=== PATIENT | male | born 1950 | race Caucasian/White ===

== ENCOUNTER → 2016-08-25 | Outpatient (CLI) | payer MEDICARE, OTHER ==
[~2016-08-25] MED LIST: ASPI-558 PO; ATOR20TA18 PO; CALMOSEPTINE OINTMENT 3.5 G PACKET TOP ONE; CARV6.252 PO; CHOL200026 PO; HYDR-4246 PO; LOSA50TA52 PO; METF500T4 PO; TAMS0.4C47 PO; TRIA1CAP6 PO
== END ==
LOC: NWCC 13:29
PROVIDERS: ATTEND Internal Medicine
DX: S97.81XS Crushing injury of right foot, sequela (principal); L97.412 Non-pressure chronic ulcer of right heel and midfoot with fat layer exposed; W23.0XXS Caught, crushed, jammed, or pinched between moving objects, sequela; B96.89 Other specified bacterial agents as the cause of diseases classified elsewhere
CPT/HCPCS: 11042; 87070; 87075; 87076; 87077; 87181; 87186; 87205; A9270

== ENCOUNTER → 2016-09-01 | Outpatient (CLI) | payer MEDICARE, OTHER ==
[~2016-09-01] MED LIST changes: -CALMOSEPTINE OINTMENT 3.5 G PACKET TOP ONE
== END ==
LOC: NWCC 11:32
PROVIDERS: ATTEND Internal Medicine
DX: S97.81XA Crushing injury of right foot, initial encounter (principal); L97.412 Non-pressure chronic ulcer of right heel and midfoot with fat layer exposed
CPT/HCPCS: 11042

== ENCOUNTER → 2016-09-26 | Outpatient (CLI) | payer MEDICARE, OTHER | LOC: LAB 12:34 | DX: R22.40 Localized swelling, mass and lump, unspecified lower limb (principal); R06.00 Dyspnea, unspecified | CPT/HCPCS: 36415; 85379 ==

== ENCOUNTER → 2016-09-29 | Outpatient (CLI) | payer MEDICARE, OTHER | LOC: NWCC 10:55 | PROVIDERS: ATTEND Internal Medicine | DX: S97.81XS Crushing injury of right foot, sequela (principal); L97.412 Non-pressure chronic ulcer of right heel and midfoot with fat layer exposed; W23.0XXS Caught, crushed, jammed, or pinched between moving objects, sequela; B96.89 Other specified bacterial agents as the cause of diseases classified elsewhere | CPT/HCPCS: 11042; 87070; 87075; 87076; 87077; 87147; 87181; 87186; 87205; A6209 ==

== ENCOUNTER → 2016-10-13 | Outpatient (CLI) | payer MEDICARE, OTHER ==
[~2016-10-13] MED LIST changes: +SALINE FLUSH 10ml SYRINGE IVF ONE
== END ==
LOC: NWCC 10:54
PROVIDERS: ATTEND Internal Medicine
DX: S97.81XS Crushing injury of right foot, sequela (principal); L97.412 Non-pressure chronic ulcer of right heel and midfoot with fat layer exposed; W23.0XXS Caught, crushed, jammed, or pinched between moving objects, sequela
CPT/HCPCS: 11042; A6209